=== PATIENT | male | born 1985 | race Caucasian/White ===

== ENCOUNTER 2019-12-25 16:30 | Emergency (ER) | payer MEDICAID ==
[~2019-12-25] VITALS: Ht 193 cm; Wt 146.5 kg
[2019-12-25 16:40] VITALS: BP 167/98
[2019-12-25] MEDS ORDERED: CEPH250T PO (18:03)
== END 2019-12-25 18:12 | disposition home or self-care (01) ==
LOC: ER 16:31
DX: L03.115 Cellulitis of right lower limb (principal); I10 Essential (primary) hypertension; Z79.899 Other long term (current) drug therapy
CPT/HCPCS: 99283

== ENCOUNTER 2020-04-04 16:48 | Inpatient (IN) | payer MEDICAID ==
[~2020-04-04] VITALS: Ht 193 cm; Wt 151.4 kg
[2020-04-04 17:32] LABS: BASOPHILS # (AUTO) 0.2 X10'3 (0-0.2); BASOPHILS % (AUTO) 0.6 % (0-1); EOSINOPHILS % (AUTO) 0.1 % (0-6); HEMATOCRIT 45.8 % (42.0-52.0); HEMOGLOBIN 15.2 g/dl (14.0-17.9); LYMPHOCYTES # (AUTO) 2.6 X10'3 (1.1-4.8); MEAN CORPUSCULAR HEMOGLOBIN 27.5 PG (27.0-31.0); MEAN CORPUSCULAR HGB CONC 33.3 g/dL (33.0-36.5); MEAN CORPUSCULAR VOLUME 82.5 FL (78-98); MEAN PLATELET VOLUME 7.8 FL (7.4-10.4); MONOCYTES # (AUTO) 1.7 X10'3 (0-0.9); MONOCYTES % (AUTO) 6.8 % (2-12); NEUTROPHILS % (AUTO) 82.5 % (42-75); PLATELET COUNT 248 X10'3 (140-440); RED BLOOD COUNT 5.54 X10'6 (4.70-6.10); RED CELL DISTRIBUTION WIDTH 14.8 % (11.5-14.5)
[2020-04-04 17:40] LABS: WHITE BLOOD COUNT 25.4 X10'3 (4.5-11.0)
[2020-04-04] MEDS ORDERED: acetaminophen 325mg tablet PO ONE (17:40)
[2020-04-04] MEDS ORDERED: ibuprofen tablet 400 MG TABLET PO ONE (17:40)
[2020-04-04] MEDS ORDERED: ibuprofen 200mg tablet PO ONE (17:45)
[2020-04-04 17:46] LABS: ALANINE AMINOTRANSFERASE 56 U/L (12-78); ALBUMIN 3.8 G/DL (3.4-5.0); ALBUMIN/GLOBULIN RATIO 0.8 (1.1-1.5); ALKALINE PHOSPHATASE 82 IU/L (46-116); ANION GAP 9 (8-16); ASPARTATE AMINO TRANSFERASE 41 U/L (10-37); BILIRUBIN,TOTAL 0.6 MG/DL (0.1-1.0); BLOOD UREA NITROGEN 27 MG/DL (7-18); BUN/CREATININE RATIO 12.4 (5.4-32.0); CALCIUM 9.5 MG/DL (8.5-10.1); CHLORIDE 94 MMOL/L (99-107); CREATININE 2.18 MG/DL (0.60-1.10); GLUCOSE 110 MG/DL (70-104); SODIUM 129 MMOL/L (135-145); TOTAL PROTEIN 8.3 G/DL (6.4-8.2); eGFR 35 ML/MIN
[2020-04-04] MEDS ORDERED: normal saline 1000ML IV soln IV ONE (18:00)
[2020-04-04] MEDS ORDERED: clindamycin 600mg/D5W 50ml 50 ML IV ONE (18:00)
[2020-04-04] MEDS ORDERED: iohexol 300mg/ml 100ml inj. ONE (18:16)
--- NOTE | 2020-04-04 18:18 | NUR ---
PT TO CT VIA [facility]
[2020-04-04] MEDS ORDERED: piperacillin/tazo 4.5gm/100ml 100 ML IV SCH ×2 (18:20→20:00)
[2020-04-04] MEDS ORDERED: piperacillin/tazo 4.5gm/100ml 100 ML IV ONE (18:20)
[2020-04-04 18:26] LABS: TOTAL CELLS COUNTED 100
[2020-04-04 18:27] LABS: LARGE PLATELETS FEW; PLATELET ESTIMATE NORMAL; TOXIC VACUOLATION 2+
[2020-04-04] MEDS ORDERED: NO HOME MEDS (18:59)
[2020-04-04 19:08] LABS: CLARITY,URINE SLIGHTLY CLOUDY (Clear); COLOR,URINE YELLOW (Yellow); GLUCOSE, URINE NEGATIVE (Neg); KETONES,URINE NEGATIVE (Neg); LEUKOCYTE ESTERASE ,URINE TRACE (Neg); NITRITES, URINE NEGATIVE (Neg); OCCULT BLOOD,URINE LARGE (Neg); PH,URINE 5.5 (4.8-8.0); PROTEIN,URINE 100 mg/dl (Neg)
[2020-04-04 19:10] LABS: UA COLLECTION TYPE URINAL
[2020-04-04 19:17] LABS: C-REACTIVE PROTEIN 25.44 MG/DL (0.0-0.5)
[2020-04-04 19:17] LABS: BACTERIA,URINE 3+ /HPF (Neg); RBC,URINE 0-2 /HPF (0-2); SQUAMOUS EPITHELIAL CELL,UR FEW /LPF (FEW); WBC,URINE 20-30 /HPF (0-4)
--- NOTE | 2020-04-04 19:19 | NUR ---
UPON TYLENOL REASSESSMENT, PT TEMP 101.6. ERIC FRIAS PRESENT IN ROOM AND STATES SHE WILL ORDER TORADOL. PT DENIES ANY PAIN AT THIS TIME.
[2020-04-04] MEDS ORDERED: ketorolac tromethamine 15mg/ml inj. IV ONE (19:20)
[2020-04-04] MEDS ORDERED: magnesium 4gm in 100ml NS 100 ML IV PRN (20:15)
[2020-04-04] MEDS ORDERED: acetaminophen 325mg tablet PO PRN ×2 (20:15)
[2020-04-04] MEDS ORDERED: HYDROcodone/acetaminophen 5mg/325mg tablet PO PRN (20:15)
[2020-04-04] MEDS ORDERED: magnesium hydroxide 30ml (MOM) UD suspension PO PRN (20:15)
[2020-04-04] MEDS ORDERED: magnesium 2GM in 50ml NS 50 ML IV PRN (20:15)
[2020-04-04] MEDS ORDERED: mag hydrox/Alum hydrox/simeth 30ml oral suspension PO PRN (20:15)
[2020-04-04] MEDS ORDERED: potassium Cl 20 mEq SR tablet PO PRN ×2 (20:15)
[2020-04-04] MEDS ORDERED: potassium CL 10mEq/100ml bag 100 ML IV PRN ×2 (20:15)
[2020-04-04] MEDS ORDERED: HYDROcodone/acetaminophen 10/325mg tab PO PRN (20:15)
[2020-04-04] MEDS ORDERED: ondansetron/PF 4mg/2ml inj IV PRN (20:15)
[2020-04-04] MEDS: normal saline 1000ml 1,000 ML IV SCH (20:30)
--- NOTE | 2020-04-04 21:47 | NUR ---
pt moved onto a hospital bed and tucked in. He is more comfortable. Fresh bp cuff because his fever broke and it was wet.
[2020-04-04] MEDS ORDERED: hydrALAZINE 20mg/ml inj. IV PRN (22:25)
[2020-04-04] MEDS ORDERED: hyDRALAzine 10mg tablet PO PRN ×2 (22:35)
[2020-04-05] MEDS ORDERED: cefepime 1GM/NS ADD-VANTAGE 100 ML IV SCH
[2020-04-05] MEDS ORDERED: heparin, porcine 5000 units/ml vial SQ SCH (08:00)
[2020-04-05] MEDS ORDERED: K and/or MAG REPLACEMENT MC SCH (08:00)
[2020-04-05] MEDS ORDERED: vancomycin/NS 1 GM ADD-VANTAGE 250 ML IV SCH (08:00)
[2020-04-05 08:55] LABS: BASOPHILS # (AUTO) 0.1 X10'3 (0-0.2); BASOPHILS % (AUTO) 0.6 % (0-1); EOSINOPHILS # (AUTO) 0.1 X10'3 (0-0.9); EOSINOPHILS % (AUTO) 0.8 % (0-6); HEMATOCRIT 41.2 % (42.0-52.0); HEMOGLOBIN 13.7 g/dl (14.0-17.9); LYMPHOCYTES # (AUTO) 1.5 X10'3 (1.1-4.8); LYMPHOCYTES % (AUTO) 10.6 % (21-51); MEAN CORPUSCULAR HEMOGLOBIN 27.7 PG (27.0-31.0); MEAN CORPUSCULAR HGB CONC 33.2 g/dL (33.0-36.5); MEAN CORPUSCULAR VOLUME 83.4 FL (78-98); MEAN PLATELET VOLUME 7.6 FL (7.4-10.4); MONOCYTES # (AUTO) 1.3 X10'3 (0-0.9); MONOCYTES % (AUTO) 8.6 % (2-12); NEUTROPHILS # (AUTO) 11.5 X10'3 (1.8-7.7); NEUTROPHILS % (AUTO) 79.4 % (42-75); PLATELET COUNT 198 X10'3 (140-440); RED BLOOD COUNT 4.94 X10'6 (4.70-6.10); RED CELL DISTRIBUTION WIDTH 15.1 % (11.5-14.5); WHITE BLOOD COUNT 14.5 X10'3 (4.5-11.0)
[2020-04-05] MEDS: normal saline 1000ml 1,000 ML IV SCH ×2 (09:05→16:13)
[2020-04-05 09:41] LABS: ALANINE AMINOTRANSFERASE 46 U/L (12-78); ALBUMIN 3.1 G/DL (3.4-5.0); ALBUMIN/GLOBULIN RATIO 0.7 (1.1-1.5); ALKALINE PHOSPHATASE 74 IU/L (46-116); ANION GAP 6 (8-16); ASPARTATE AMINO TRANSFERASE 43 U/L (10-37); BILIRUBIN,TOTAL 0.5 MG/DL (0.1-1.0); BLOOD UREA NITROGEN 17 MG/DL (7-18); BUN/CREATININE RATIO 13.2 (5.4-32.0); CALCIUM 8.7 MG/DL (8.5-10.1); CHLORIDE 103 MMOL/L (99-107); CREATININE 1.29 MG/DL (0.60-1.10); GLUCOSE 97 MG/DL (70-104); MAGNESIUM 1.8 MG/DL (1.5-2.4); SODIUM 136 MMOL/L (135-145); TOTAL CARBON DIOXIDE 26.9 MMOL/L (24-32); TOTAL PROTEIN 7.4 G/DL (6.4-8.2); eGFR 64 ML/MIN
[2020-04-05 10:00] VITALS: BP 143/76
[2020-04-05] MEDS: cefazolin/dext.iso 2gm/50ml 50 ML IV SCH ×2 (10:53→17:02)
[2020-04-05 11:00] VITALS: BP 133/83
[2020-04-05] MEDS ORDERED: cefazolin/dext.iso 2gm/50ml 50 ML IV SCH (16:00)
--- NOTE | 2020-04-05 17:08 | NUR ---
SENT PAGE TO DR MCKEON RE: PAGER ID: [phone] MESSAGE: MELVA CARROLL. PT STATING THAT HE WOULD LIKE TO LEAVE [facility]. WANTING TO DC HIM NEURO DONATO [id number]
[2020-04-05 18:00] VITALS: BP 136/94
--- NOTE | 2020-04-05 18:30 | NUR ---
Patient in room ORTHO 4021. I have received report from Blessing FLOWERS and had the opportunity to ask questions and assume patient care.
--- NOTE | 2020-04-05 18:58 | NUR ---
Patient wanting to leave AMA. Paged
--- NOTE | 2020-04-05 19:03 | NUR ---
Patient's IV was taken out, patient has all belongings when he left the floor. Patient walked out with nursing staff.
--- NOTE | 2020-04-05 19:17 | NUR ---
Shanon notified of SILAS
[2020-04-06] MEDS ORDERED: VANCOMYCIN LEVEL IV ONE (19:30)
== END 2020-04-05 19:04 | disposition left against medical advice (07) | DRG 720 ==
LOC: ER 16:48 → ED HOLD 20:13 → ORTHO 4S 04-05 07:50
PROVIDERS: ADMIT Family Medicine; ATTEND Family Medicine
DX: A41.9 Sepsis, unspecified organism (principal); E66.01 Morbid (severe) obesity due to excess calories; E86.0 Dehydration; F15.90 Other stimulant use, unspecified, uncomplicated; I10 Essential (primary) hypertension; E87.1 Hypo-osmolality and hyponatremia; N17.9 Acute kidney failure, unspecified; L03.116 Cellulitis of left lower limb; Z87.891 Personal history of nicotine dependence; Z82.0 Family history of epilepsy and other diseases of the nervous system; Z68.41 Body mass index [BMI] 40.0-44.9, adult
CPT/HCPCS: 36415; 73701; 80053; 81001; 83605; 83735; 84145; 85007; 85025; 86140; 87040; 87081; 87088; 96365; 96367; 96375; 99285; G0378; J0692; J1644; J1885; J2543; J3370; J3490; J7030; Q9967

== ENCOUNTER 2020-04-22 19:56 | Emergency (ER) | payer MEDICAID ==
[~2020-04-22] VITALS: Ht 193 cm; Wt 152.3 kg
[~2020-04-22 19:56] MED LIST: NO HOME MEDS
[2020-04-22 20:14] VITALS: BP 191/101
[2020-04-22] MEDS ORDERED: DOXYCYCLINE 100MG CAPSULE PO STA (21:01)
[2020-04-22] MEDS ORDERED: DOXY100C77 PO (21:05)
== END 2020-04-22 21:26 | disposition home or self-care (01) ==
LOC: ER 20:00
DX: L03.116 Cellulitis of left lower limb (principal); I10 Essential (primary) hypertension; Z79.899 Other long term (current) drug therapy
CPT/HCPCS: 99283

== ENCOUNTER 2020-05-13 05:02 | Emergency (ER) | payer MEDICAID ==
[~2020-05-13] VITALS: Ht 193 cm; Wt 145.4 kg
[2020-05-13] MEDS ORDERED: SULF1TAB49 PO (06:24)
[2020-05-13] MEDS ORDERED: CEPH500C5 PO (06:24)
[2020-05-13 06:33] VITALS: BP 157/103
== END 2020-05-13 06:45 | disposition home or self-care (01) ==
LOC: ER 05:03
DX: L03.116 Cellulitis of left lower limb (principal); F15.10 Other stimulant abuse, uncomplicated; I10 Essential (primary) hypertension; Z79.899 Other long term (current) drug therapy
CPT/HCPCS: 99283

== ENCOUNTER 2020-05-25 03:04 | Emergency (ER) | payer MEDICAID ==
[~2020-05-25] VITALS: Ht 193 cm; Wt 150.0 kg
[~2020-05-25 03:04] MED LIST changes: +CEPH500C5 PO; +SULF1TAB49 PO
--- NOTE | 2020-05-25 09:56 | NUR ---
PT RESTING ON GURBOGATA. IN NO OBVIOUS DISTRESS.
--- NOTE | 2020-05-25 10:15 | NUR ---
US at bedside
[2020-05-25 11:30] VITALS: BP 150/98
== END 2020-05-25 11:33 | disposition home or self-care (01) ==
LOC: ER 03:04
DX: L03.116 Cellulitis of left lower limb (principal); I10 Essential (primary) hypertension; F15.90 Other stimulant use, unspecified, uncomplicated; Z79.2 Long term (current) use of antibiotics
CPT/HCPCS: 93971; 99284

== ENCOUNTER 2022-03-25 09:16 | Emergency (ER) | payer MEDICAID ==
[~2022-03-25] VITALS: Ht 193 cm; Wt 163.6 kg
[~2022-03-25 09:16] MED LIST changes: -CEPH500C5 PO; -SULF1TAB49 PO
[2022-03-25 13:28] VITALS: BP 175/112
[2022-03-25] MEDS ORDERED: sulfamethoxazole/trimethoprim DS (800/160mg) tablet PO ONE (13:35)
[2022-03-25] MEDS ORDERED: ondansetron 4mg rapidly disintigrating tab PO ONE (13:35)
[2022-03-25] MEDS ORDERED: SULF1TAB49 PO (13:50)
== END 2022-03-25 14:33 | disposition home or self-care (01) ==
LOC: ER 09:18
DX: L03.116 Cellulitis of left lower limb (principal); I10 Essential (primary) hypertension; F15.20 Other stimulant dependence, uncomplicated
CPT/HCPCS: 73610; 99283

== ENCOUNTER 2024-12-13 08:55 | Emergency (ER) | payer MEDICAID ==
[~2024-12-13] VITALS: Ht 193 cm; Wt 151.0 kg
--- NOTE | 2024-12-13 09:36 | Physician Documentation ---
History of Present Illness General Chief Complaint: Abdominal Pain Stated Complaint: STOMACH PAIN Time Seen by MD: 09:10 Primary Medical Doctor: harley miranda in History of Present Illness Initial Comments Morbidly obese 39-year-old male who presents to the emergency department with epigastric discomfort that he awoke with this morning without associated nausea or vomiting melena stool or bloody stool. No reported hematochezia. Patient denies drinking alcohol. Reports one similar episode about a month ago that resolved on its own. Has a primary care physician yet does not not follow up. Past medical history significant for left lower leg cellulitis. All labs reassuring. Patient had mild relief after Maalox. Ultrasound imaging of the g allbladder initially reported by the tech has a stone in the cystic duct, radiologist reads as no coli lithiasis or obstruction. Gallbladder wall normal in thickness. Patient will be placed on PPI for two weeks and asked to follow up with the primary care physician. He additionally I will be starting the patient on low-dose lisinopril for management of high blood pressure. No JAYDEN noted, all labs are reassuring. No transaminitis. Safely discharged in the emergency department. Medication Reconciliation Allergies: Coded Allergies: No Known Allergies (Unverified , 05/25/20) Miscellaneous Medications Home Med List (No Home Medications), (Reported) Past Medical History Past Medical History: Hypertension, Cellulitis Past Surgical History: no surgical history Smoking: Non-Smoker Alcohol Use: None Drug Use: methamphetamine Lives In: Home Review of Systems Constitutional: Denies: fever, chills RESP: Denies: short of breath, cough CV: Denies: chest pain, palpitations GI: Reports: abdominal pain, nausea; Denies: vomiting, diarrhea, constipation Integ: Denies: rash Physical Exam Physical Exam Vital Signs: RN Vital Signs have been reviewed: Yes, Temperature: 98.7, Source: Temporal, Heart Rate: 89, Respiratory Rate: 18, BP: 183/120, Pulse Oximetry: 100, Weight: 151.000 Oxygen Flow Rate: 0 General Appearance: alert, WD/WN, mild distress Head: normal inspection Face: normal inspection Pupils/EOM/Fundus: PERRLA Respiratory: no respiratory distress Chest: no accessory muscle use Cardiovascular: normal peripheral pulses Gastrointestinal: other (Enlarged growth with a negative Torres's sign. Epigastric discomfort normal bowel sounds) Back: normal inspection Extremities: normal range of motion, other (Left lower leg hyperpigmentation) Neurologic: oriented x4 Motor / Sensory: no motor deficit, no sensory deficit Psychiatric: normal mood/affect Skin: normal color, warm/dry; No: rash Progress Results/Orders Results/Orders Orders - MAINE SALAZAR Ultrasound Of Abdomen (12/13/24 ) Completed Orders - MAINE SALAZAR PAC Mag & Alum Hydrox/Simeth Susp (Maalox Or (12/13/24 09:40) Ultrasound Of Abdomen (12/13/24 ) Medications Received in ER Medications (Trade) Dose Ordered Sig/Freddie Route PRN Reason Start Time Stop Time Status Last Admin Dose Admin (Maalox oral suspension) 30 ml ONCE ONCE PO 12/13/24 09:40 12/13/24 09:41 DC 12/13/24 10:04 30 ML Vital Signs 12/13/24 12/13/24 12/13/24 08:59 09:22 09:22 Temp 98.7 98.7 Pulse 89 77 Resp 18 14 14 B/P (MAP) 183/120 113/69 (84) Pulse Ox 100 100 O2 Flow Rate 0 0 Laboratory Tests Test 12/13/24 09:15 12/13/24 09:35 White Blood Count 7.8 Red Blood Count 5.46 Hemoglobin 14.8 Hematocrit 45.4 Mean Corpuscular Volume 83.2 Mean Corpuscular Hemoglobin 27.1 Mean Corpuscular Hemoglobin Concent 32.6 L Red Cell Distribution Width 15.3 H Platelet Count 248 Mean Platelet Volume 7.7 Neutrophils (%) (Auto) 63.6 Lymphocytes (%) (Auto) 24.9 Monocytes (%) (Auto) 7.9 Eosinophils (%) (Auto) 2.8 Basophils (%) (Auto) 0.8 Neutrophils # (Auto) 4.9 Lymphocytes # (Auto) 1.9 Monocytes # (Auto) 0.6 Eosinophils # (Auto) 0.2 Basophils # (Auto) 0.1 CBC Comment Sodium Level 144 Potassium Level 3.8 Chloride Level 106 Carbon Dioxide Level 30.7 Anion Gap 7 L Blood Urea Nitrogen 14 Creatinine 1.04 Estimated GFR/1.73 m2 80 BUN/Creatinine Ratio 13.5 Glucose Level 122 H Calcium Level 8.7 Total Bilirubin 0.3 Aspartate Amino Transf (AST/SGOT) 36 Alanine Aminotransferase (ALT/SGPT) 43 Alkaline Phosphatase 93 Total Protein 6.9 Albumin 3.6 Globulin 3.3 Albumin/Globulin Ratio 1.1 Lipase 30 Chemistry Comments Urine Specimen Description Voided Urine Color Yellow Urine Clarity Clear Urine pH 6.5 Urine Specific [place] 1.015 Urine Protein Negative Urine Glucose (UA) Negative Urine Ketones Negative Urine Occult Blood Negative Urine Nitrite Negative Urine Bilirubin Negative Urine Urobilinogen 0.2 Urine Leukocyte Esterase Negative Urine Culture Indicated Not ind Volume Urine Centrifuged 10 ml Urine Comment Medical Decision Making Differential Diagnosis 39-year-old male woke with moderate to severe epigastric discomfort with the abrupt in the emergency department begins to subside as he has been in the emergency department. No associated vomiting, hematemesis and/or melena stool. We will trial GI cocktail in obtain screening labs. We will address obesity, high blood pressure and abnormal labs prior to discharge. Departure Disposition: HOME / SELF CARE / HOMELESS Impression: Primary Impression: Epigastric pain Discharge Instructions: Gastritis, Adult Additional Instructions: The radiologist has read your ultrasound is normal. This is reassuring. Please begin medications as directed. Make a follow up appointment with the primary care physician in the local area. Begin high blood pressure medicine as directed. For persistent pain and/or pain associated fever please return to the emergency department. Thank you for visiting [facility] Referrals: NO PRIMARY CARE PROVIDER (PCP) Prescriptions Lisinopril (Lisinopril) 20 Mg Tablet 1 TAB PO DAILY for 30 Days, #30 TAB Prov: MAINE SALAZAR 12/13/24 Famotidine (Pepcid) 40 Mg Tablet 1 TABLET PO DAILY, #30 TABLET 1 Refill may sub any h2 mary per formulary at high dose Prov: MAINE SALAZAR 12/13/24 Education Educated: Patient Educated regarding: diagnosis, treatment Signature Scribe Signature: . Attestation: MAINE JIMENEZ Dec 13, 2024 09:35
[2024-12-13 09:43] LABS: BASOPHILS # (AUTO) 0.1 X10'3 (0-0.2); BASOPHILS % (AUTO) 0.8 % (0-1); EOSINOPHILS # (AUTO) 0.2 X10'3 (0-0.9); EOSINOPHILS % (AUTO) 2.8 % (0-6); HEMATOCRIT 45.4 % (42.0-52.0); HEMOGLOBIN 14.8 g/dl (14.0-17.9); LYMPHOCYTES # (AUTO) 1.9 X10'3 (1.1-4.8); LYMPHOCYTES % (AUTO) 24.9 % (21-51); MEAN CORPUSCULAR HEMOGLOBIN 27.1 PG (27.0-31.0); MEAN CORPUSCULAR HGB CONC 32.6 g/dL (33.0-36.5); MEAN CORPUSCULAR VOLUME 83.2 FL (78-98); MEAN PLATELET VOLUME 7.7 FL (7.4-10.4); MONOCYTES # (AUTO) 0.6 X10'3 (0-0.9); MONOCYTES % (AUTO) 7.9 % (2-12); NEUTROPHILS # (AUTO) 4.9 X10'3 (1.8-7.7); NEUTROPHILS % (AUTO) 63.6 % (42-75); PLATELET COUNT 248 X10'3 (140-440); RED BLOOD COUNT 5.46 X10'6 (4.70-6.10); RED CELL DISTRIBUTION WIDTH 15.3 % (11.5-14.5); WHITE BLOOD COUNT 7.8 X10'3 (4.5-11.0)
--- NOTE | 2024-12-13 09:45 | ELECTROCARDIOGRAPH REPORT ---
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 Brannon Baumann Measurements Intervals [place] Rate: 74 P: 31 [place]: 144 QRS: 21 QRSD: 102 T: 18 QT: 380 QTc: 422 Interpretive Statements Sinus rhythm Probable left atrial enlargement Electronically Signed On 12-14-2024 6:35:[address] Brannon Baumann Please click the below link to view image of tracing.
[2024-12-13 09:47] LABS: ALANINE AMINOTRANSFERASE 43 U/L (12-78); ALBUMIN 3.6 G/DL (3.4-5.0); ALBUMIN/GLOBULIN RATIO 1.1 (1.1-1.5); ALKALINE PHOSPHATASE 93 IU/L (46-116); ANION GAP 7 (8-16); ASPARTATE AMINO TRANSFERASE 36 U/L (10-37); BILIRUBIN,TOTAL 0.3 MG/DL (0.1-1.0); BLOOD UREA NITROGEN 14 MG/DL (7-18); BUN/CREATININE RATIO 13.5 (10.0-20.0); CALCIUM 8.7 MG/DL (8.5-10.1); CHLORIDE 106 MMOL/L (99-107); CREATININE 1.04 MG/DL (0.60-1.10); GLUCOSE 122 MG/DL (70-104); LIPASE 30 U/L (16-77); POTASSIUM 3.8 MMOL/L (3.5-5.1); SODIUM 144 MMOL/L (135-145); TOTAL CARBON DIOXIDE 30.7 MMOL/L (24-32); TOTAL PROTEIN 6.9 G/DL (6.4-8.2); eCRCL 117 ML/MIN; eGFR 80 ML/MIN
[2024-12-13] MEDS: mag hydrox/Alum hydrox/simeth 30ml oral suspension PO ONE (10:04)
[2024-12-13 11:20] LABS: BILIRUBIN,URINE NEGATIVE (Neg); CLARITY,URINE CLEAR (Clear); COLOR,URINE YELLOW (Yellow); GLUCOSE, URINE NEGATIVE (Neg); KETONES,URINE NEGATIVE (Neg); LEUKOCYTE ESTERASE ,URINE NEGATIVE (Neg); NITRITES, URINE NEGATIVE (Neg); OCCULT BLOOD,URINE NEGATIVE (Neg); PH,URINE 6.5 (4.8-8.0); PROTEIN,URINE NEGATIVE (Neg); UROBILINOGEN,URINE 0.2 E.U/dL (0.2-1.0)
[2024-12-13 11:25] LABS: UA COLLECTION TYPE VOIDED
--- NOTE | 2024-12-13 12:00 | RADIOLOGY REPORT ---
INDICATION: RUQ pain TECHNIQUE: Multiple real-time sonographic images of the abdomen were obtained. COMPARISON: None FINDINGS: The liver is increased in echogenicity. The liver measures 20.1 cm. No intrahepatic biliary ductal dilatation is noted. The gallbladder wall measures 0.6 cm and is unremarkable. No gallstones or sludge is seen. The com mon duct measures 0.3 cm and is unremarkable. No pericholecystic fluid is noted. Negative sonographic paul's sign. The right kidney measures 13.4 cm. No hydronephrosis. The pancreas is not well visualized due to obscuration from bowel gas. The visualized portions of the IVC and aorta are grossly unremarkable. IMPRESSION: 1. Hepatic steatosis. 2. No gallstones or acute cholecystitis.
[2024-12-13] MEDS ORDERED: LISI20TA28 PO (12:09)
[2024-12-13] MEDS ORDERED: FAMO40TA73 PO (12:09)
[2024-12-13 12:21] VITALS: BP 166/102; PULSE 67; RESP 18; TEMP 98.7; O2SAT 98
== END 2024-12-13 12:27 | disposition home or self-care (01) ==
LOC: ER 08:55
DX: R10.13 Epigastric pain (principal); I10 Essential (primary) hypertension
CPT/HCPCS: 36415; 76700; 80053; 81003; 83690; 85025; 93005; 99284